=== PATIENT | male | born 1990 | race Caucasian/White ===

== ENCOUNTER 2017-04-07 15:18 | Emergency (ER) | payer OTHER ==
[2017-04-07 15:37] VITALS: BP 145/55; PULSE 72; RESP 18; TEMP 98; O2SAT 97
[2017-04-07] MEDS ORDERED: IBUPROFEN 600 MG TAB PO ONE (15:47)
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
== END 2017-04-07 17:13 | disposition home or self-care (01) ==
LOC: CED 15:18
DX: S62.021A Displaced fracture of middle third of navicular [scaphoid] bone of right wrist, initial encounter for closed fracture (principal); S80.212A Abrasion, left knee, initial encounter; S93.422A Sprain of deltoid ligament of left ankle, initial encounter; S50.01XA Contusion of right elbow, initial encounter; Z87.891 Personal history of nicotine dependence; V18.0XXA Pedal cycle driver injured in noncollision transport accident in nontraffic accident, initial encounter; Y92.410 Unspecified street and highway as the place of occurrence of the external cause; Y99.8 Other external cause status; Y93.55 Activity, bike riding
CPT/HCPCS: 73080-PO; 73110-PO; 73610-PO; A4565; L4350

== ENCOUNTER 2019-01-14 12:04 | Emergency (ER) | payer OTHER | END 2019-01-14 16:45 | disposition home or self-care (01) ==

== ENCOUNTER 2019-01-15 16:31 | Emergency (ER) | payer OTHER | END 2019-01-15 16:51 | disposition left against medical advice (07) | LOC: CED 16:31 ==